=== PATIENT | female | born 1965 | race Caucasian/White ===

== ENCOUNTER 2016-05-26 08:32 | Day surgery (SDC) | payer BC ==
[~2016-05-26] VITALS: Ht 170.2 cm; Wt 99.3 kg
[~2016-05-26 08:32] MED LIST: BCP; FISH OIL300 MG PO; FLOMAX0.4 MG PO; LEVAQUIN500 MG PO; LISINOPRIL-HCT1 EACH PO; PERCOCET 5/31 TABLET PO; ZESTORETIC,P1 TABLET PO; ZESTRIL10 MG PO; ZOFRAN ODT4 MG PO
[2016-05-26 09:37] VITALS: BP 134/99
[2016-05-26 17:55] VITALS: BP 127/81
[2016-05-26 18:44] VITALS: BP 133/77
== END 2016-05-26 18:50 | disposition home or self-care (01) ==
LOC: SDC
DX: C50.912 Malignant neoplasm of unspecified site of left female breast (principal); E78.1 Pure hyperglyceridemia; H81.09 Meniere's disease, unspecified ear; M19.90 Unspecified osteoarthritis, unspecified site; I10 Essential (primary) hypertension
CPT/HCPCS: 78195; 78999; 88305; 88307; A9541; J0690; J1170; J2250; J2765; J3010; S0020

== ENCOUNTER 2017-03-12 22:07 | Emergency (ER) | payer BC, OTHER ==
[~2017-03-12] VITALS: Ht 170.2 cm; Wt 96.8 kg
[2017-03-12 22:10] VITALS: BP 114/80
[2017-03-12] MEDS ORDERED: NAPROXEN500 MG PO (22:54)
== END 2017-03-12 23:42 | disposition home or self-care (01) ==
LOC: EME 22:07
DX: S93.401A Sprain of unspecified ligament of right ankle, initial encounter (principal); W10.9XXA Fall (on) (from) unspecified stairs and steps, initial encounter; Z85.3 Personal history of malignant neoplasm of breast; Z88.5 Allergy status to narcotic agent; Z91.040 Latex allergy status
CPT/HCPCS: 73610; 99281; 99284; J1885

== ENCOUNTER 2017-07-26 07:52 | Emergency (ER) | payer BC, OTHER ==
[~2017-07-26] VITALS: Ht 170.2 cm; Wt 96.6 kg
[~2017-07-26 07:52] MED LIST changes: +NAPROXEN500 MG PO
[2017-07-26 08:49] LABS: BASOPHIL (%) 0.9 % (0-1); BASOPHIL COUNT 0.1 K/uL (0-0.1); EOSINOPHIL (%) 2.5 % (0-5); EOSINOPHIL COUNT 0.1 K/uL (0-0.3); HEMATOCRIT 35.1 % (36.0-46.0); HEMOGLOBIN 11.7 G/DL (11.9-15.5); IMMATURE GRANULOCYTE (%) 0.5 % (0.0-0.7); LYMPHOCYTE (%) 22.8 % (15-42); LYMPHOCYTE COUNT 1.3 K/uL (1.0-2.8); MCH 28.5 PG (29.0-34.0); MCHC 33.3 G/DL (30.0-36.0); MCV 85.4 FL (83-99); MONOCYTE (%) 7.2 % (3-12); MONOCYTE COUNT 0.4 K/uL (0-0.8); NEUTROPHIL (%) 66.1 % (45-76); NEUTROPHIL COUNT 3.8 K/uL (1.8-6.4); PLATELET COUNT 261 K/uL (156-360); RBC DIS.WIDTH-SD 43.5 % (39-53); RED BLOOD COUNT 4.11 M/uL (3.80-5.20); WHITE BLOOD COUNT 5.7 K/uL (4.1-10.2)
[2017-07-26 09:21] LABS: CHLORIDE 106 MEQ/L (99-109); CREATININE 0.7 MG/DL (0.6-1.3); GFR ESTIMATE (CALCULATED) > 59 mL/min/; GLUCOSE 145 mg/dL (70-99); POTASSIUM 3.5 MEQ/L (3.7-5.4); SODIUM 139 MEQ/L (136-147); UREA NITROGEN (BUN) 17 mg/dL (9-23)
[2017-07-26] MEDS ORDERED: KEFLEX500 MG PO (10:33)
[2017-07-26 10:51] VITALS: BP 129/71
== END 2017-07-26 10:52 | disposition home or self-care (01) ==
LOC: EME 07:52
PROVIDERS: Nurse Practitioner Family
DX: L02.412 Cutaneous abscess of left axilla (principal); Z85.3 Personal history of malignant neoplasm of breast; Z88.5 Allergy status to narcotic agent; Z91.040 Latex allergy status
CPT/HCPCS: 76882; 80048; 85025; 99281; 99283